=== PATIENT | female | born 1980 | race Asian ===

== ENCOUNTER 2016-04-29 15:19 | Emergency (ER) | payer OTHER ==
[2016-04-29] MEDS ORDERED: hydrOXYzine HCL TAB* 50 MG PO ONE (17:19)
[2016-04-29] MEDS ORDERED: hydrOXYzine HCL TAB* 25 MG ONE (17:27)
[2016-04-29] MEDS ORDERED: hydrOXYzine HCL TAB* 25 MG PO ONE (17:33)
[2016-04-29 18:25] VITALS: BP 141/77
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
== END 2016-04-29 18:38 | disposition home or self-care (01) ==
LOC: UCEAST 15:19
DX: F41.9 Anxiety disorder, unspecified (principal); R42 Dizziness and giddiness; R06.02 Shortness of breath
CPT/HCPCS: 93005; 99212; A9270-GY; G0463

== ENCOUNTER 2016-10-03 20:07 | Emergency (ER) | payer OTHER ==
[2016-10-03 20:15] VITALS: BP 135/79
--- NOTE | 2016-10-03 20:28 | UC ---
Skin Complaint HPI - HPI Summary HPI Summary: 36 year old female presents with complains of rash on her lower legs. She has a history of Henoch-Schonlein Purpura but her rash has gotten progressively worse. - History of Current Complaint Chief Complaint: UCGeneralIllness Time Seen by Provider: 10/03/16 20:23 Stated Complaint: BURNING RASH Hx Last Menstrual Period: 09/17/16 - Allergy/Home Medications Allergies/Adverse Reactions: Allergies Allergy/AdvReac Type Severity Reaction Status Date / Time No Known Allergies Allergy Verified 04/29/16 15:34 Review of Systems Constitutional: Negative Skin: Rash - lower legs Eyes: Negative ENT: Negative Respiratory: Negative Cardiovascular: Negative Gastrointestinal: Negative Genitourinary: Negative Motor: Negative Neurovascular: Negative Musculoskeletal: Negative Neurological: Negative Psychological: Negative All Other Systems Reviewed And Are Negative: Yes PMH/Surg Hx/FS Hx/Imm Hx Previously Healthy: Yes - Surgical History Surgical History: Yes Surgery Procedure, Year, and Place: RT HAND 1988 - Family History Known Family History: Negative: Diabetes - Social History Alcohol Use: None Substance Use Type: None Smoking Status (MU): Never Smoked Tobacco Physical Exam Triage Information Reviewed: Yes Vital Signs: Initial Vital Signs Temp 37.6 C 10/03/16 20:10 Pulse 122 10/03/16 20:10 Resp 18 10/03/16 20:10 BP 135/79 10/03/16 20:10 Pulse Ox 100 10/03/16 20:10 Eye Exam: Normal ENT Exam: Normal Dental Exam: Normal Neck exam: Normal Neck: Positive: 1 Respiratory Exam: Normal Cardiovascular Exam: Normal Abdominal Exam: Normal Musculoskeletal Exam: Normal Neurological Exam: Normal Psychological Exam: Normal Skin Exam: Normal Skin: Positive: rashes - lower legs Course/Dx - Diagnoses Provider Diagnoses: rash lower legs Discharge - Discharge Plan Condition: Stable Disposition: HOME Patient Education Materials: Acute Rash (ED) Referrals: Rissa Elder MD [Primary Care Provider] -
== END 2016-10-03 20:37 | disposition left against medical advice (07) ==
LOC: UCEAST 20:07
DX: R21 Rash and other nonspecific skin eruption (principal)
CPT/HCPCS: 99212; G0463

== ENCOUNTER 2016-10-03 20:46 | Emergency (ER) | payer OTHER ==
[2016-10-03 22:54] LABS: Urine Bacteria Absent (Absent); Urine Bilirubin Negative (Negative); Urine Glucose Negative (Negative); Urine Nitrite Negative (Negative)
[2016-10-03 22:55] LABS: Hematocrit 40 % (35-47); Hemoglobin 13.3 g/dl (12.0-16.0); Mean Corpuscular HGB Conc 33 g/dl (31-36); Mean Corpuscular Hemoglobin 30 pg (27-31); Mean Corpuscular Volume 91 fL (80-97); Mean Platelet Volume 8 um3 (7.4-10.4); Red Blood Count 4.39 10^6/ul (4.0-5.4); Red Cell Distribution Width 13 % (10.5-15); White Blood Count 14.7 10^3/ul (3.5-10.8)
[2016-10-03 23:05] LABS: Albumin 3.9 g/dL (3.2-5.2); Calcium 9.2 mg/dL (8.6-10.3); EGFR African American 114.7 (>60); EGFR Non-African American 89.2 (>60); Globulin 3.3 g/dL (2-4); Potassium 3.7 mmol/L (3.5-5.0); Total Bilirubin 0.3 mg/dL (0.2-1.0); Total Protein 7.2 g/dL (6.4-8.9)
[2016-10-03] MEDS ORDERED: diPHENhydraMINE PO* 25 MG PO ONE (23:09)
--- NOTE | 2016-10-03 23:11 | ED ---
Samantha Burch Alok, scribed for Cedrick Logan MD on 10/03/16 at 2230 . Skin Complaint - HPI Summary HPI Summary: 36F presents to the ED with a rash on all extremities since 3 days ago, worsening yesterday, after returning from her travel in [place]. Pt's rash is erythematous and pruritus. PMHx includes h/o Hoensch-Scholein Purpure with similar episodes of rashes in the past. Pt states that normally her rashes flair up after travel and resolve within a day. Pt states she has not had a rash this bad since she was a child. Pt last saw her PCP Dr. Arce 2 month ago for routine work-up and has her next appointment in one month. - History of Current Complaint Chief Complaint: EDRashSkinAbscess Time Seen by Provider: 10/03/16 22:19 Stated Complaint: RASHES-SENT FROM [facility] Hx Obtained From: Patient Hx Last Menstrual Period: 09/17/16 Onset/Duration: Started Days Ago, Atraumatic, Still Present, Worse Since - yesterday Timing: Constant Onset Severity: Moderate Current Severity: Moderate Pain Intensity: 2 Pain Scale Used: 0-10 Numeric Skin Location: Arm, Leg Character: Pruritus, Redness Aggravating Symptom(s): Nothing Alleviating Symptom(s): Nothing Related History: Other: - Recent Travel - Allergy/Home Medications Allergies/Adverse Reactions: Allergies Allergy/AdvReac Type Severity Reaction Status Date / Time No Known Allergies Allergy Verified 04/29/16 15:34 PMH/Surg Hx/FS Hx/Imm Hx Endocrine/Hematology History: Denies: Hx Diabetes, Hx Thyroid Disease Cardiovascular History: Denies: Hx Hypertension Respiratory History: Denies: Hx Asthma, Hx Chronic Obstructive Pulmonary Disease (COPD) GI History: Denies: Hx Ulcer - Surgical History Surgery Procedure, Year, and Place: RT HAND 1988 Infectious Disease History: No Infectious Disease History: Denies: Hx Clostridium Difficile, Hx Hepatitis, Hx Human Immunodeficiency Virus (HIV), Hx of Known/Suspected MRSA, Hx Shingles, Hx Tuberculosis, Hx Known/ Suspected VRE, Traveled Outside the [place] in Last 30 Days - Family History Known Family History: Negative: Diabetes - Social History Occupation: Employed Full-time Lives: With Family Alcohol Use: None Substance Use Type: Reports: None Hx Tobacco Use: No Smoking Status (MU): Never Smoked Tobacco Review of Systems Negative: Fever Positive: Rash All Other Systems Reviewed And Are Negative: Yes Physical Exam Triage Information Reviewed: Yes Vital Signs On Initial Exam: Initial Vitals Temp Pulse Resp BP Pulse Ox 99.1 F 117 15 135/89 100 10/03/16 21:01 10/03/16 21:01 10/03/16 21:01 10/03/16 21:01 10/03/16 21:01 Vital Signs Reviewed: Yes Appearance: Positive: Well-Appearing, No Pain Distress Skin: Positive: Warm, Other - patchy round erythematous purple non blanching rash on extremities, more lower than upper Head/Face: Positive: Normal Head/Face Inspection Eyes: Positive: SANTI ENT: Positive: Hearing grossly normal Neck: Positive: Supple Respiratory/Lung Sounds: Positive: Clear to Auscultation, Breath Sounds Present Cardiovascular: Positive: RRR Abdomen Description: Positive: Nontender, Soft Bowel Sounds: Positive: Present Musculoskeletal: Positive: Strength/ROM Intact Neurological: Positive: Alert, Oriented to Person Place, Time - Frandy Coma Scale Coma Scale Total: 15 Diagnostics - Vital Signs Vital Signs Temp Pulse Resp BP Pulse Ox 10/03/16 21:01 99.1 F 117 15 135/89 100 - Laboratory Lab Results: Lab Results 10/03/16 10/03/16 10/03/16 Range/Units 21:14 22:39 22:39 WBC 14.7 H (3.5-10.8) 10^3/ul RBC 4.39 (4.0-5.4) 10^6/ul Hgb 13.3 (12.0-16.0) g/dl Hct 40 (35-47) % MCV 91 (80-97) fL MCH 30 (27-31) pg MCHC 33 (31-36) g/dl RDW 13 (10.5-15) % Plt Count 422 (150-450) 10^3/ul MPV 8 (7.4-10.4) um3 Neut % (Auto) 73.5 (38-83) % Lymph % (Auto) 16.6 L (25-47) % [place] % (Auto) 7.9 (1-9) % Eos % (Auto) 1.1 (0-6) % Baso % (Auto) 0.9 (0-2) % Absolute Neuts (auto) 10.8 H (1.5-7.7) 10^3/ul Absolute Lymphs (auto) 2.5 (1.0-4.8) 10^3/ul Absolute Monos (auto) 1.2 H (0-0.8) 10^3/ul Absolute Eos (auto) 0.2 (0-0.6) 10^3/ul Absolute Basos (auto) 0.1 (0-0.2) 10^3/ul Absolute Nucleated RBC 0.01 10^3/ul Nucleated RBC % 0.1 Sodium 138 (133-145) mmol/L Potassium 3.7 (3.5-5.0) mmol/L Chloride 105 (101-111) mmol/L Carbon Dioxide 27 (22-32) mmol/L Anion Gap 6 (2-11) mmol/L BUN 8 (6-24) mg/dL Creatinine 0.73 (0.51-0.95) mg/dL Est GFR ( Amer) 114.7 (>60) Est GFR (Non-Af Amer) 89.2 (>60) BUN/Creatinine Ratio 11.0 (8-20) Glucose 113 H (70-100) mg/dL Calcium 9.2 (8.6-10.3) mg/dL Total Bilirubin 0.30 (0.2-1.0) mg/dL AST 11 L (13-39) U/L ALT 10 (7-52) U/L Alkaline Phosphatase 49 (34-104) U/L Total Protein 7.2 (6.4-8.9) g/dL Albumin 3.9 (3.2-5.2) g/dL Globulin 3.3 (2-4) g/dL Albumin/Globulin Ratio 1.2 (1-3) Urine Color Colorless Urine Appearance Clear Urine pH 6.0 (5-9) Ur Specific [place] 1.001 L (1.010-1.030) Urine Protein Negative (Negative) Urine Ketones Negative (Negative) Urine Blood 2+ H (Negative) Urine Nitrate Negative (Negative) Urine Bilirubin Negative (Negative) Urine Urobilinogen Negative (Negative) Ur Leukocyte Esterase Negative (Negative) Urine WBC (Auto) Trace(0-5/hpf) (Absent) Urine RBC (Auto) Trace(0-2/hpf) (Absent) Urine Bacteria Absent (Absent) Urine Glucose Negative (Negative) Result Diagrams: 10/03/16 22:39 10/03/16 22:39 Lab Statement: Any lab studies that have been ordered have been reviewed, and results considered in the medical decision making process. Re-Evaluation - Re-Evaluation First Eval Re-Evaluation Time: 23:21 Change: Improved Comment: Discussed lab results with pt Course/Dx - Diagnoses Provider Diagnoses: Henoch-Schonlein purpura Discharge - Discharge Plan Condition: Stable Disposition: HOME Patient Education Materials: Henoch-Schonlein Purpura (ED) Referrals: Rissa Elder MD [Primary Care Provider] - The documentation as recorded by the Samantha santos Alok accurately reflects the service I personally performed and the decisions made by me, Cedrick Logan MD.
[2016-10-03 23:35] VITALS: BP 133/88
== END 2016-10-03 23:35 | disposition home or self-care (01) ==
LOC: ED 20:46
DX: D69.0 Allergic purpura (principal)
CPT/HCPCS: 36415; 80053; 81003; 81015; 85025; A9270-GY

== ENCOUNTER → 2016-12-02 19:10 | Emergency (ER) | payer OTHER ==
[2016-12-02 20:15] LABS: Hematocrit 39 % (35-47); Hemoglobin 13.1 g/dl (12.0-16.0); Mean Corpuscular HGB Conc 34 g/dl (31-36); Mean Corpuscular Hemoglobin 30 pg (27-31); Mean Corpuscular Volume 90 fL (80-97); Mean Platelet Volume 7 um3 (7.4-10.4); Red Blood Count 4.35 10^6/ul (4.0-5.4); Red Cell Distribution Width 13 % (10.5-15); White Blood Count 11.3 10^3/ul (3.5-10.8)
[2016-12-02 20:30] LABS: ALT 11 U/L (7-52); AST 15 U/L (13-39); Albumin 4.3 g/dL (3.2-5.2); Alkaline Phosphatase 50 U/L (34-104); Anion Gap 7 mmol/L (2-11); BUN/Creatinine Ratio 9.7 (8-20); Blood Urea Nitrogen 7 mg/dL (6-24); CO2 Carbon Dioxide 26 mmol/L (22-32); Calcium 9.7 mg/dL (8.6-10.3); Chloride 105 mmol/L (101-111); EGFR African American 116.6 (>60); EGFR Non-African American 90.7 (>60); Globulin 3.5 g/dL (2-4); Glucose 102 mg/dL (70-100); Potassium 3.7 mmol/L (3.5-5.0); Sodium 138 mmol/L (133-145); Total Protein 7.8 g/dL (6.4-8.9)
[2016-12-02 20:49] LABS: Acetaminophen < 15 mcg/mL; Alcohol < 10 mg/dL (<10); Salicylate < 2.50 mg/dL (<30)
[2016-12-02 21:08] LABS: TSH (Thyroid Stimulating Horm) 1.74 mcIU/mL (0.34-5.60)
[2016-12-02 21:54] VITALS: BP 151/83
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
[2016-12-02 21:58] LABS: Urine Bacteria 1+ (Absent); Urine Bilirubin Negative (Negative); Urine Glucose Negative (Negative); Urine Nitrite Negative (Negative)
[2016-12-02 22:06] LABS: Benzodiazepine Urine Screen None Detected (None Detect)
== END ==
LOC: ED 19:10
DX: D69.0 Allergic purpura (principal); F43.20 Adjustment disorder, unspecified
CPT/HCPCS: 36415; 80053; 80307; 80320; 80329; 81003; 81015; 84443; 84702; 85025; 87086; 99284; G0480